=== PATIENT | female | born 1955 | race Caucasian/White ===

== ENCOUNTER 2017-02-01 08:04 | Emergency (ER) | payer SELFPAY ==
[~2017-02-01] VITALS: Ht 165.1 cm; Wt 90.2 kg
[2017-02-01 08:05] VITALS: Ht 165.1 cm; Wt 90.2 kg
--- NOTE | 2017-02-01 08:58 | ERD ---
ER Documentation Chief Complaint Chief Complaint HIGH BP, HEADACHE HPI 61-year-old female otherwise healthy no prior medical problems presents emergency room with symptoms of palpitations, nausea and headache that started last night around 5 PM. Patient states that she is getting ready to eat dinner and reports nausea, and palpitations are described as feeling like her heart is pounding harder than normal. She reports an achy headache that is mild, diffuse on the frontal and occipital region. She does not describe any chest pain at this time, diaphoresis. She comes to the emergency department because she checked her blood pressure at home and it was in the 160s over 90s. ROS All systems reviewed and are negative except as per history of present illness. Allergies Allergies: Coded Allergies: aspirin (Verified Allergy, Mild, NAUSEA AND VOMITING, 02/01/17) PMhx/Soc Family history: Patient's father at 62 years old of an NM. Medical and Surgical Hx: pt denies Medical Hx, pt denies Surgical Hx Hx Alcohol Use: No Hx Substance Use: No Hx Tobacco Use: No Smoking Status: Never smoker Physical Exam Vitals Vital Signs Date Time Temp Pulse Resp B/P Pulse Ox O2 Delivery O2 Flow Rate FiO2 02/01/17 10:53 98.2 69 16 133/79 98 Room Air 02/01/17 08:05 97.6 78 17 164/87 97 Physical Exam General: Well-developed, well-nourished. The patient appears in no acute distress. HEENT: Head is normocephalic, atraumatic. No scleral icterus. Pupils are equal , round, and reactive. Neck: Supple. Nontender. Lungs: Clear to auscultation. Normal air movement. Heart: Regular rate and rhythm. S1 and S2 are normal. No murmurs, gallops, or rubs. Abdomen: Soft, nontender, nondistended. Bowel sounds are normoactive. Extremities: No clubbing or cyanosis. Normal pulses. Moving extremities x 4. No weakness. Neuro: M/S: Alert and oriented Face: EOMI, CN II-XII grossly intact Motor: Normal strength throughout Sensation: Normal sensation throughout Speech: Normal Cerebel: Normal coordination Normal gait Normal finger to nose DTR: 2+ and symmetric upper/lower extremities Skin: Normal turgor. No rash or lesions. Result Diagram: 02/01/17 0910 02/01/17 0910 Results 24 hrs Laboratory Tests Test 02/01/17 09:05 02/01/17 09:10 Urine Color COLORLESS Urine Clarity CLEAR Urine pH 7.0 Urine Specific [place] 1.002 Urine Ketones NEGATIVEmg/dL Urine Nitrite NEGATIVEmg/dL Urine Bilirubin NEGATIVEmg/dL Urine Urobilinogen NEGATIVEmg/dL Urine Leukocyte Esterase TRACELeu/ul Urine Microscopic RBC 1/HPF Urine Microscopic WBC 1/HPF Urine Bacteria FEW/HPF Urine Hemoglobin NEGATIVEmg/dL Urine Glucose NEGATIVEmg/dL Urine Total Protein NEGATIVEmg/dl White Blood Count 4.910^3/ul Red Blood Count 4.3310^6/ul Hemoglobin 13.5g/dl Hematocrit 40.2% Mean Corpuscular Volume 92.8fl Mean Corpuscular Hemoglobin 31.2pg Mean Corpuscular Hemoglobin Concent 33.6g/dl Red Cell Distribution Width 12.4% Platelet Count 39691^3/UL Mean Platelet Volume 8.6fl Neutrophils % 53.4% Lymphocytes % 39.1% Monocytes % 5.7% Eosinophils % 1.2% Basophils % 0.4% Nucleated Red Blood Cells % 0.0/100WBC Neutrophils # 2.610^3/ul Lymphocytes # 1.910^3/ul Monocytes # 0.310^3/ul Eosinophils # 0.110^3/ul Basophils # 0.010^3/ul Nucleated Red Blood Cells # 0.010^3/ul Sodium Level 143mmol/L Potassium Level 4.4mmol/L Chloride Level 105mmol/L Carbon Dioxide Level 27mmol/L Anion Gap 15 Blood Urea Nitrogen 13mg/dl Creatinine 0.73mg/dl Glucose Level 118mg/dl Calcium Level 9.6mg/dl Total Bilirubin 0.5mg/dl Direct Bilirubin 0.00mg/dl Indirect Bilirubin 0.5mg/dl Aspartate Amino Transf (AST/SGOT) 31IU/L Alanine Aminotransferase (ALT/SGPT) 46IU/L Alkaline Phosphatase 74IU/L Troponin I < 0.012ng/ml Total Protein 8.0g/dl Albumin 4.4g/dl Globulin 3.60g/dl Albumin/Globulin Ratio 1.22 EKG: Reviewed by Dr. Hogan Rate/Rhythm: Normal Sinus Rhythm, rate of 70 QRS, ST, T-waves: No changes consistent w/ acute ischemia, nonspecific ST changes Impression: No evidence of ischemia or arrhythmia DIAGNOSTIC IMAGING REPORT Patient: PATRICK FERNANDEZ : 1955 Age: 61 Sex: F MR #: [id number] [facility] #: [id number] DOS: 02/01/17 0842 Ordering MD: HERBERT MARTINES PA-C Location: [facility]END[facility] SALE TO [facility] Room/Bed: PROCEDURE: Chest x-ray CLINICAL INDICATION: Palpitations TECHNIQUE: Chest single view COMPARISON: None FINDINGS: The heart is normal in size. The pulmonary vessels are normal in caliber. The lungs are clear. The costophrenic angles are sharp. The visualized bony thorax is unremarkable. IMPRESSION: No acute cardiopulmonary disease. RPTAT: HH .Christiano Aviles MD, Date Time Electronically viewed and signed by .Christiano Aviles MD, on 02/01/2017 09:42 .W/ Procedures/MDM 61 year old female comes in with high blood pressure, headache, palpitations. Patient's EKG, chest x-ray normal, troponin is negative. Patient's heart score is 2 at this time, given her symptoms started last night at 5 PM while eating dinner believe the patient can safely be discharged and managed on an outpatient basis. I have asked her to follow-up with her primary care doctor, to recheck her blood pressure and she may warrant antihypertensive medication. Differentials include acute coronary syndrome, TIA, stroke, NSTEMI, STEMI, dysrhythmias, atrial fibrillation, dehydration. I discussed patient's care with my attending physician, Dr. Hogan also agrees that the patient can be discharged at this time. No evidence of hypertensive crisis or emergency. Patient's blood pressure was elevated (>120/80) but appears stable without evidence of hypertension emergency or urgency. The patient was counseled about the risks of hypertension and urged to pursue outpatient monitoring and therapy within a week with their primary care physician. Departure Diagnosis: Primary Impression: Elevated blood pressure reading Condition: Good HERBERT MARTINES PA-C Feb 01, 2017 08:58
[2017-02-01 09:33] LABS: ADD UMIC YES; UR ASCORBIC ACID NEGATIVE (NEGATIVE); UR BACTERIA FEW /HPF (NONE SEEN); UR BILIRUBIN (Dip) NEGATIVE (NEGATIVE); UR BLOOD (Dip) NEGATIVE (NEGATIVE); UR CLARITY CLEAR (CLEAR); UR COLOR COLORLESS (YELLOW); UR GLUCOSE (Dip) NEGATIVE (NEGATIVE); UR KETONES (Dip) NEGATIVE (NEGATIVE); UR LEUKOCYTE ESTERASE (Dip) TRACE Leu/ul (NEGATIVE); UR NITRITE (Dip) NEGATIVE (NEGATIVE); UR RBC 1 /HPF (0-5); UR SPECIFIC GRAVITY (Dip) 1.002 (1.003-1.030); UR TOTAL PROTEIN (Dip) NEGATIVE (NEGATIVE); UR UROBILINOGEN (Dip) NEGATIVE (NEGATIVE)
[2017-02-01 09:34] LABS: BASOPHILS % 0.4 % (0.0-2.0); EOSINOPHILS # 0.1 10^3/ul (0.0-0.5); EOSINOPHILS % 1.2 % (0.0-7.0); HEMATOCRIT 40.2 % (37.0-47.0); HEMOGLOBIN 13.5 g/dl (12.0-16.0); LYMPHOCYTES # 1.9 10^3/ul (0.8-2.9); LYMPHOCYTES % 39.1 % (15.0-51.0); MEAN CORPUSCULAR HEMOGLOBIN 31.2 pg (29.0-33.0); MEAN CORPUSCULAR HGB CONC 33.6 g/dl (32.0-37.0); MEAN CORPUSCULAR VOLUME 92.8 fl (82.0-101.0); MEAN PLATELET VOLUME 8.6 fl (7.4-10.4); MONOCYTE # 0.3 10^3/ul (0.3-0.9); MONOCYTES % 5.7 % (0.0-11.0); NEUTROPHIL # 2.6 10^3/ul (1.6-7.5); NEUTROPHILS % 53.4 % (39.0-77.0); PLATELET COUNT 198 10^3/UL (140-415); RED BLOOD COUNT 4.33 10^6/ul (4.20-5.40); RED CELL DISTRIBUTION WIDTH 12.4 % (11.5-14.5); WHITE BLOOD COUNT 4.9 10^3/ul (4.8-10.8)
--- NOTE | 2017-02-01 09:43 | RADRPT ---
PROCEDURE: Chest x-ray CLINICAL INDICATION: Palpitations TECHNIQUE: Chest single view COMPARISON: None FINDINGS: The heart is normal in size. The pulmonary vessels are normal in caliber. The lungs are clear. Th e costophrenic angles are sharp. The visualized bony thorax is unremarkable. IMPRESSION: No acute cardiopulmonary disease. RPTAT: HH .Christiano Aviles MD, Date Time Electronically viewed and signed by .Christiano Aviles MD, MD on 02/01/2017 09:42 .W/
[2017-02-01 09:56] LABS: ALANINE AMINOTRANSFERASE 46 IU/L (13-69); ALBUMIN 4.4 g/dl (3.3-4.9); ALBUMIN/GLOBULIN RATIO 1.22; ALKALINE PHOSPHATASE 74 IU/L (42-121); ANION GAP 15 (8-16); ASPARTATE AMINO TRANSFERASE 31 IU/L (15-46); BILIRUBIN,INDIRECT 0.5 mg/dl (0-1.1); BILIRUBIN,TOTAL 0.5 mg/dl (0.2-1.3); BLOOD UREA NITROGEN 13 mg/dl (7-20); CALCIUM 9.6 mg/dl (8.4-10.2); CARBON DIOXIDE 27 mmol/L (21-31); CHLORIDE 105 mmol/L (97-110); CREATININE 0.73 mg/dl (0.44-1.00); GLUCOSE 118 mg/dl (70-220); POTASSIUM 4.4 mmol/L (3.5-5.1); SODIUM 143 mmol/L (135-144)
[2017-02-01 10:11] LABS: TROPONIN-I < 0.012 ng/ml (0.00-0.12)
[2017-02-01 10:53] VITALS: BP 133/79; PULSE 69; RESP 16; TEMP 98.2
== END 2017-02-01 10:45 | disposition home or self-care (01) ==
LOC: FTE 08:04
DX: R03.0 Elevated blood-pressure reading, without diagnosis of hypertension (principal)
CPT/HCPCS: 36415; 71010; 80053; 81001; 84484; 85025; 93005